=== PATIENT | female | born 1940 | race Caucasian/White ===

== ENCOUNTER 2018-01-07 14:30 | Emergency (ER) | payer MEDICARE ==
--- NOTE | 2018-01-07 15:30 | CT ---
CT BRAIN WITHOUT CONTRAST: Date: 01/07/18 HISTORY: Altered mental status. Fall. COMPARISON: CT from 2008. FINDINGS: No acute hemorrhage or infarct. No midline shift or mass effect. Moderate atrophy. Mild increase in b hadyee ganglia and cerebellar calcifications. Calvarium is intact. IMPRESSION: No acute intracranial abnormality. POS: [facility]IE
--- NOTE | 2018-01-07 15:40 | CT ---
NONCONTRAST CT CERVICAL SPINE: DATE: 01/07/18. HISTORY: Cervical spine injury. TECHNIQUE: Contiguous axial CT images are obtained through the cervical spine from the skull base to the level o f th eT3 vertebral body. Sagittal and coronal reformatted images are provided. FINDINGS: There is mild anterolisthesis of C2 on C3 and to a greater degree anterolisthesis at the C3-4 level. There are prominent facet hypertrophic changes seen at each of these levels. There are degenerative changes of the cervical spine and narrowing of the intervertebral disk spaces at the majority of the levels with degenerative changes greatest at the C4-5, C5-6, and C6-7 levels where there are promine nt end plate degenerative changes and severe loss of intervertebral disk height. Vacuum phenomenon i s seen at the C4-5 and C5-6 levels. There is mild right and moderate left-sided neural foraminal narrowing at C2-3 level and moderate to severe bilateral neural foraminal narrowing at C3-4 level, greater on the right, primarily related to facet hypertrophic changes as well as posterior osteophyte formation and anterolisthesis at these le vels. At the C4-5 level, there is severe bilateral neural foraminal narrowing due to posterior osteophyte f ormation and uncinate process hypertrophy. There is severe left-sided neural foraminal narrowing at C5-6 again related to the facet hypertrophic changes and posterior osteophyte formation. Severe bila teral neural foraminal narrowing is also seen at the C6-7 level related to bony encroachment. No fracture is seen. There is trace anterolisthesis of C7 on T1. There is mild height loss at the C 5 vertebral body probably due to the prominent degenerative changes at this level. The prevertebral soft tissues are within normal limits. There are mild prominent interstitial densities at each lung apex which may be related to mild chroni c lung changes. There is a hypodense nodule left lobe of the thyroid gland measuring approximately 8 mm. Vascular calcifications are seen in the carotid arteries and at the aortic arch. IMPRESSION: 1. Multilevel degenerative changes seen throughout the cervical spine. 2. Anterolisthesis of C2 on C3 and to a greater extent C3 on C4 related to prominent facet degenerat wallace changes. There is severe bilateral neural foraminal narrowing at the C3-4 level. 3. Hypodense nodule left lobe of the thyroid gland. Nonemergent thyroid ultrasound is recommended. POS: HERRERAH
[2018-01-07 16:03] LABS: Hemoglobin 14.7 g/dL (12.0-16.0); Mean Corpuscular HGB CONC 33.6 g/dL (32.0-36.0); Mean Corpuscular Hemoglobin 36.8 pg (27.0-31.0); Mean Platelet Volume 7.3 fL (7.4-10.4); Platelet Count 247 thou/uL (130-400); RBC Distribution Width 13.4 % (11.5-14.5); Red Blood Cell (RBC) Count 3.99 mill/uL (4.20-5.40); White Blood Cell (WBC) Count 6.7 thou/uL (4.8-10.8)
[2018-01-07] MEDS ORDERED: Multivitamins, Adult 10 ML, Thiamine HCl 100 MG, Folic Acid 1 MG in Dextrose 5 %-0.45 %... IV SCH (16:15)
[2018-01-07 16:19] LABS: ALT (SGPT) 30 U/L (8-55); AST (SGOT) 107 U/L (5-34); Albumin 3.9 g/dL (3.4-4.8); Alkaline Phosphatase 159 U/L (40-150); Anion Gap 21 mmol/L (10-20); BUN (Urea Nitrogen) 9 mg/dL (9.8-20.1); Bilirubin, Total 1.9 mg/dL (0.2-1.2); Calc. Creatinine Clearance 0 mL/min (70-130); Calcium 9.2 mg/dL (7.8-10.44); Carbon Dioxide 22 mmol/L (23-31); Chloride 100 mmol/L (98-107); Estimated GFR-MDRD 80; Globulin 3.5 g/dL (2.4-3.5); Glucose 78 mg/dL (83-110); Protein, Total 7.4 g/dL (6.0-8.3); Sodium 140 mmol/L (136-145)
[2018-01-07 16:20] LABS: Acetaminophen Less than 6.0 mcg/mL (10.0-30.0); Alcohol 258 mg/dL (Less than 10); CK (CPK) 63 U/L (29-168); Salicylate Less than 8.0 mg/dL (15.0-30.0)
[2018-01-07 16:22] LABS: MDiff Complete? YES; Macrocytosis SLIGHT = 6-15 cells (100X) (0-5/hpf); PLT Morphology Comment Appears Adequate; Potassium 2.8 mmol/L (3.5-5.1)
[2018-01-07] MEDS ORDERED: Potassium Chloride 20 MEQ TAB ONE ×2 (17:23→17:36)
[2018-01-07] MEDS ORDERED: Potassium Chloride 20 MEQ in Premix Bag 1 BAG IVPB SCH (18:00)
[2018-01-07] MEDS ORDERED: Magnesium Sulfate 2 GM in Sodium Chloride 0.9% 100 ML IVPB SCH (19:15)
== END 2018-01-07 22:09 | disposition home or self-care (01) ==
LOC: ERS 14:30
DX: F10.129 Alcohol abuse with intoxication, unspecified (principal); E87.6 Hypokalemia; Z87.891 Personal history of nicotine dependence
CPT/HCPCS: 36416; 70450; 72125; 80053; 80307; 82550; 83735; 85025; 93005; 96365; 96366; 96367; 96368; J3411; J3475; J3480; J7042; J7050

== ENCOUNTER 2018-02-24 13:29 | Inpatient (IN) | payer MEDICARE, OTHER ==
[2018-02-24 14:14] LABS: Hemoglobin 14.4 g/dL (12.0-16.0); Mean Corpuscular Hemoglobin 38.1 pg (27.0-31.0); Mean Platelet Volume 8.3 fL (7.4-10.4); Platelet Count 453 thou/uL (130-400); RBC Distribution Width 14.7 % (11.5-14.5); Red Blood Cell (RBC) Count 3.78 mill/uL (4.20-5.40); White Blood Cell (WBC) Count 22.1 thou/uL (4.8-10.8)
[2018-02-24 14:31] LABS: ALT (SGPT) 13 U/L (8-55); AST (SGOT) 75 U/L (5-34); Albumin 2.7 g/dL (3.4-4.8); Alkaline Phosphatase 165 U/L (40-150); Anion Gap 19 mmol/L (10-20); BUN (Urea Nitrogen) 7 mg/dL (9.8-20.1); Bilirubin, Total 7.7 mg/dL (0.2-1.2); Calc. Creatinine Clearance 0 mL/min (70-130); Calcium 7.8 mg/dL (7.8-10.44); Carbon Dioxide 26 mmol/L (23-31); Chloride 89 mmol/L (98-107); Estimated GFR-MDRD 80; Globulin 4.4 g/dL (2.4-3.5); Glucose 126 mg/dL (83-110); Protein, Total 7.1 g/dL (6.0-8.3); Sodium 132 mmol/L (136-145)
[2018-02-24 14:33] LABS: Anisocytosis SLIGHT = 6-15 cells (100X) (0-5/hpf); Band 7 % (5-11); Eosinophils 1 % (0-10); Lymphocytes 4 % (21-51); MDiff Complete? YES; Monocytes 4 % (0-10); Neutrophil 84 % (42-75); PLT Morphology Comment Appears Increased
--- NOTE | 2018-02-24 15:24 | RAD ---
RIGHT HIP 2 VIEWS: Date: 02/24/18 HISTORY: Pain. COMPARISON: None. FINDINGS: Mild to moderate degenerative change in the joint space. Contour of the femoral head is maintained. N o fracture. There is mild bone demineralization. IMPRESSION: No fracture. Mild degenerative change in the right hip joint space. POS: HERRERA
[2018-02-24] MEDS ORDERED: Potassium Chloride 20 MEQ TAB ONE (16:02)
[2018-02-24 16:10] LABS: Bilirubin Large (Negative); Blood, Urine Negative (Negative); Clarity CLOUDY (Clear); Glucose, Urine (Dipstick) Negative (Negative); Leukocyte Large (Negative); Nitrite Positive (Negative); Protein, Urine (Dipstick) 30 mg/dL (Neg-Trace); Specific Gravity, Urine 1.015 (1.002-1.036); Urobilinogen > or = 8.0 mg/dL (0.2-1.0)
[2018-02-24 16:12] LABS: Bacteria/HPF 4+ HPF (None Seen); Pathc Cast-AUWi Flag 0.87 (0-2.49); Squamous Epithelial None Seen HPF (0-3)
[2018-02-24 16:12] LABS: INR-International Normal Ratio 1.3; Prothrombin Time 16.1 SEC (12.0-14.7)
[2018-02-24 16:21] LABS: RBC/HPF None Seen HPF (0-3)
[2018-02-24] MEDS ORDERED: Sodium Chloride 0.9% 100 ML ONE (16:21)
[2018-02-24] MEDS ORDERED: cefTRIAXone\\ROCEPHIN 2 GM VIAL ONE (16:21)
--- NOTE | 2018-02-24 16:29 | RAD ---
ONE VIEW CHEST: 02/24/18 HISTORY: Weakness. COMPARISON: None. FINDINGS: Normal cardiac silhouette. Pulmonary vessels and hilum are normal. Parenchymal changes in both lung b ases. Small left sided effusion. Mild bone demineralization. No pneumothorax. IMPRESSION: Bibasilar parenchymal changes likely due to atelectasis. Aspiration/pneumonia cannot be excluded. Sma ll left sided effusion. POS: [facility]
[2018-02-24 18:26] LABS: Magnesium 1.5 mg/dL (1.6-2.6); Phosphorus 2.2 mg/dL (2.3-4.7)
[2018-02-24] MEDS: Multivitamins, Adult 10 ML, Thiamine HCl 100 MG, Folic Acid 1 MG in Dextrose 5 %-0.45 %... IV SCH ×2 (18:30→21:58)
[2018-02-24] MEDS: Potassium Chloride 40 MEQ in Sodium Chloride 0.9% 250 ML 250 ML IVPB SCH ×2 (18:30→21:59)
[2018-02-24 18:48] LABS: INR-International Normal Ratio 1.4; PTT 30.7 SEC (22.9-36.1); Prothrombin Time 17.5 SEC (12.0-14.7)
[2018-02-24 19:53] LABS: Lactic Acid 2.3 mmol/L (0.5-2.2)
[2018-02-24] MEDS ORDERED: Ondansetron ODT 4 MG TAB SL PRN (21:00)
[2018-02-24] MEDS ORDERED: Ondansetron HCl/PF 4 MG/2 ML Vial IVP PRN (21:00)
[2018-02-24] MEDS ORDERED: Sodium Chloride 0.9% 1,000 ML IV SCH (21:00)
[2018-02-24] MEDS ORDERED: Senokot 8.6 MG TAB PO PRN (21:49)
[2018-02-24] MEDS ORDERED: Calcium Carbonate 500 MG ChewTAB PO PRN (21:49)
[2018-02-24] MEDS ORDERED: Magnesium 2 GM/NS 0.9% 100 ML 2 GM in Premix Bag 1 BAG IVPB SCH (22:00)
--- NOTE | 2018-02-24 22:56 | HP ---
DATE OF ADMISSION: 02/24/2018 PRIMARY CARE PHYSICIAN: Sheyla guerrero. CHIEF COMPLAINT: Generalized weakness. HISTORY OF PRESENT ILLNESS: The patient is a 77-year-old female with chronic alcoholism and dementia who was brought in by her caregiver with generalized weakness and increasing confusion over the past week. Please note that there is no family or caregiver at the bedside at this time. Apparently, the caregiver was present in the emergency room. History was obtained from the ER record. Not much information is available from the patient. The patient was brought in from home by the patient's caregiver due to increasing confusion over the past week along with generalized fatigue and weakness. The patient has also lost appetite. There was some right hip pain as well. No fever or chills reported. The patient has a history of chronic alcoholism. It is unclear when her last drink was. In the emergency room, initial vital signs showed temperature 98, respiration 22 , pulse rate of 111 with a blood pressure of 114/69 with O2 saturation 95% on room air. The patient was found to have severe electrolyte abnormalities. She received vancomycin, ceftriaxone, banana bag, and potassium chloride in the emergency room. PAST MEDICAL HISTORY: 1. Chronic alcoholism. 2. Alzheimer's dementia. PAST SURGICAL HISTORY: Cannot be obtained from the patient due to current cognitive status. ALLERGIES: Cannot be obtained from the patient due to current cognitive status. CURRENT HOME MEDICATIONS: Cannot be obtained from the patient due to current cognitive status. FAMILY HISTORY: Cannot be obtained from the patient due to current cognitive status. SOCIAL HISTORY: Cannot be obtained from the patient due to current cognitive status. Per ER record, patient quit smoking 2 years ago. She drinks alcohol heavily on the daily basis. She lives alone at home and has a caregiver. FULL CODE. DPOA - brother in law Keron Schofield. REVIEW OF SYSTEMS: Cannot be obtained from the patient due to current cognitive status. CODE STATUS: She is FULL CODE. Durable power of personnel administrator is unclear at this time. PHYSICAL EXAMINATION: VITAL SIGNS: As discussed above. GENERAL: A 77-year-old female with altered mentation. Denies any new complaints. HEENT: Head atraumatic, normocephalic. Sclerae icteric. Dry mucous membrane, no oral lesion. NECK: Supple, no JVD, no neck stiffness. LUNGS: Showed bibasilar crackles with scattered rhonchi. No wheezing noted. HEART: S1, S2 present. Regular rate and rhythm, 2/6 systolic murmur over the mitral area. No heaves or pulsation. ABDOMEN: Soft, nondistended, bowel sounds present, no guarding, rigidity. EXTREMITIES: No edema or calf tenderness. Some right hip tenderness. PSYCHIATRIC: As discussed above. NEUROLOGIC: Detailed examination could not be done due to current cognitive status. The patient is spontaneously moving all 4 extremities. SKIN: Jaundiced, warm and dry. LYMPH NODES: No palpable lymph nodes in the neck. PERIPHERAL VASCULAR: Radial pulses palpable bilaterally. MUSCULOSKELETAL: As discussed above. LABORATORY AND X-RAY FINDINGS: WBC 22.1 with 84% neutrophils. MCV 112 with MCH 38.1, INR 1.4, PT 17.5, potassium 2.0 with sodium 132, phosphorus 2.2, magnesium 1.5, creatinine 0.7. Lactic acid was 4.5. Repeat lactic acid after IV hydration was 2.3, total bilirubin 7.7, albumin 2.7 with total protein of 7.1. Lipase of 143, direct bilirubin 5.0. Urinalysis showed greater than 50 wbc's with 4+ bacteria and hyaline cast. Chest x-ray by my review showed possible bilateral parenchymal changes consistent with aspiration pneumonia. Telemetry by my review showed sinus rhythm. IMPRESSION: 1. Generalized weakness, multifactorial. 2. Sepsis with acute organ dysfunction secondary to urinary tract infection and possible aspiration pneumonia. 3. Severe electrolyte abnormalities including hypokalemia, hyponatremia, hypophosphatemia and hypomagnesemia. 4. Lactic acidosis, probably secondary to sepsis/dehydration. 5. Abnormal liver function tests of unclear etiology, probably secondary to chronic alcoholism. The bilirubin was 1.9 two months ago. 6. Moderate protein calorie malnutrition. 7. Macrocytosis, probably secondary to chronic alcoholism, rule out folic acid and vitamin B12 deficiency. 8. Chronic alcoholism. 9. Elevated lipase, probably secondary to chronic alcohol use. PLAN: The patient will be monitored on the telemetry unit. Electrolytes will be replaced. We will consult Gastroenterology in a.m. Check ammonia, cortisol , folic acid, vitamin B12 in a.m. Repeat magnesium, phosphorus, and lipase in a.m. We will check TSH. IV fluid with potassium chloride. Antibiotics for UTI and possible aspiration pneumonia. We will repeat chest x-ray in a.m. Plan of care was discussed with the patient. We will discuss the plan of care with the family in a.m. Palliative care team will be consulted. KELSEY
[2018-02-24] MEDS: Lorazepam 1 MG TAB PO PRN (23:23)
[2018-02-24] MEDS: Piperacillin/Tazobactam 3.375 GM in Sodium Chloride 0.9% 100 ML IVPB SCH (23:30)
--- NOTE | 2018-02-24 23:52 | ULT ---
RENAL ULTRASOUND 02/24/18 COMPARISON: Hepatic ultrasound 02/24/18. HISTORY: Urinary tract infection. Evaluate for obstructive uropathy. TECHNIQUE: Multiplanar lyons scale and color doppler images were obtained in a renal ultrasound. FINDINGS: The kidneys are normal in echogenicity without hydronephrosis or calculi and each measure 9.8 cm in l ength. Limited visualization of the urinary bladder is unremarkable. IMPRESSION: Unremarkable renal ultrasound. POS: [facility]
--- NOTE | 2018-02-24 23:56 | ULT ---
RIGHT UPPER QUADRANT ABDOMINAL ULTRASOUND 02/24/18 COMPARISON: None. HISTORY: Increased LFTs. History of alcohol abuse. TECHNIQUE: Multiplanar lyons scale and color doppler images were obtained in a right upper quadrant hepatic ultra sound. Spectral analysis of the doppler waveforms were performed. FINDINGS: The liver demonstrates increased echogenicity without focal lesions or intrahepatic ductal dilatation . The gallbladder contains a small amount of nonshadowing sludge without gallbladder wall thickening or pericholecystic fluid. The common bile duct is normal measuring 4 mm. Normal directional flow is seen within the hepatic veins, splenic artery and vein, and portal vein. The spleen is normal in echogenicity and size measuring 8.3 cm in length. A small amount of ascites i s seen. The pancreas cannot be visualized. IMPRESSION: 1. Cirrhosis with normal directional flow within the hepatic vessels. 2. Gallbladder sludge. POS: [facility]
[2018-02-24] MEDS ORDERED: Potassium Phosphate 30 MMOL in Sodium Chloride 0.9% 500 ML IVPB SCH (23:59)
[2018-02-25 05:00] LABS: #Basophils 0.1 thou/uL (0.0-0.2); #Eosinphils 0.2 thou/uL (0.0-0.7); #Lymphocytes 3.3 thou/uL (1.20-3.40); #Monocytes 1.5 thou/uL (0.11-0.59); #Neutrophils 14.5 thou/uL (1.40-6.50); %Basophils 0.5 % (0.0-1.0); %Eosinophils 1.1 % (0.0-10.0); %Lymphocytes 16.9 % (21.0-51.0); %Monocytes 7.8 % (0.0-10.0); %Neutrophils 73.7 % (42.0-75.0); Hemoglobin 12.9 g/dL (12.0-16.0); Mean Corpuscular HGB CONC 33.5 g/dL (32.0-36.0); Mean Corpuscular Hemoglobin 38.2 pg (27.0-31.0); Mean Platelet Volume 8.2 fL (7.4-10.4); Platelet Count 355 thou/uL (130-400); RBC Distribution Width 14.6 % (11.5-14.5); Red Blood Cell (RBC) Count 3.38 mill/uL (4.20-5.40); White Blood Cell (WBC) Count 19.7 thou/uL (4.8-10.8)
[2018-02-25] MEDS: NS 0.9% w/ 40 MEQ KCL 1,000 ML IV SCH ×4 (05:06→21:56)
[2018-02-25] MEDS: Piperacillin/Tazobactam 3.375 GM in Sodium Chloride 0.9% 100 ML IVPB SCH ×3 (05:07→18:13)
[2018-02-25 05:11] LABS: Lactic Acid 3.1 mmol/L (0.5-2.2)
[2018-02-25 05:19] LABS: ALT (SGPT) 15 U/L (8-55); AST (SGOT) 73 U/L (5-34); Albumin 2.4 g/dL (3.4-4.8); Alkaline Phosphatase 140 U/L (40-150); Anion Gap 14 mmol/L (10-20); BUN (Urea Nitrogen) 5 mg/dL (9.8-20.1); Bilirubin, Direct 4.8 mg/dL (0.1-0.3); Bilirubin, Total 6.5 mg/dL (0.2-1.2); Calc. Creatinine Clearance 55 mL/min (70-130); Calcium 7.1 mg/dL (7.8-10.44); Carbon Dioxide 23 mmol/L (23-31); Chloride 100 mmol/L (98-107); Estimated GFR-MDRD Greater than 90; Glucose 98 mg/dL (83-110); Lipase 90 U/L (8-78); Magnesium 2.1 mg/dL (1.6-2.6); Phosphorus 2.7 mg/dL (2.3-4.7); Potassium 2.9 mmol/L (3.5-5.1); Sodium 134 mmol/L (136-145)
[2018-02-25 05:46] LABS: Vitamin B12 1530 pg/mL (211-911)
[2018-02-25] MEDS ORDERED: Potassium Chloride 10 MEQ in Premix Bag 1 BAG IVPB SCH (06:30)
[2018-02-25 07:53] LABS: Folate (Folic Acid) Greater than 76.00 ng/mL (7.0-31.4)
--- NOTE | 2018-02-25 08:02 | RAD ---
CHEST 1 VIEW: Date: 02/25/18 HISTORY: Weakness. Dyspnea. Follow-up. COMPARISON: 02/24/18. FINDINGS: Cardiac silhouette is magnified by projection. Pulmonary vasculature upper limits of normal. Mediasti num is midline with aortic calcification. Patchy bibasilar parenchymal opacity is unchanged. No evide nce of pneumothorax. Old right proximal humeral fracture. IMPRESSION: Slight increase in pulmonary vascular congestion. Otherwise stable radiographic appearance of the [address]. POS: [facility]
[2018-02-25] MEDS ORDERED: Prevnar 13-Val Conj/PF 0.5 ML SYRINGE IM ONE (09:00)
[2018-02-25] MEDS: Docusate 100 MG CAP PO SCH ×2 (11:35→19:42)
[2018-02-25] MEDS: Cyanocobalamin (Vitamin B-12) 1,000 MCG TAB PO SCH (11:35)
[2018-02-25] MEDS: Potassium Chloride 20 MEQ TAB PO SCH ×2 (11:35→12:26)
[2018-02-25] MEDS: K-Phos Neutral 250 MG TAB PO SCH ×3 (11:35→16:13)
[2018-02-25] MEDS: Famotidine 20 MG TAB PO SCH ×2 (11:35→19:42)
[2018-02-25] MEDS: Folic Acid 1 MG TAB PO SCH (11:36)
[2018-02-25] MEDS: Multivit, Therapeutic 1 TAB PO SCH (11:36)
--- NOTE | 2018-02-25 12:06 | PQF ---
HIREN CHAN MALIK MD [id number] [facility]-[id number] CLINICAL DOCUMENTATION IMPROVEMENT CLARIFICATION FORM: ICD-10 Updated PLEASE DO AN ADDENDUM TO THE PROGRESS NOTE WITH ANY DOCUMENTATION UPDATES OR ADDITIONS AND CARRY THROUGH TO DC SUMMARY. THANK YOU. DATE: 02-25-18 ATTN: DR. RUVALCABA Please exercise your independent, professional judgment in responding to the clarification form. Clinical indicators are provided on the bottom of this form for your review Please check appropriate box(s): [ ] Encephalopathy: Type: [ ] Acute [ ] Subacute [ ] Chronic Etiology: [ ] Metabolic [ ] Hepatic w/o Coma [ ] Septic [ ] Unspecified [ ] in the setting of underlying dementia [ ] Other (please specify) [ ] Transient Alteration of Awareness [ ] Other diagnosis [ ] Unable to determine In addition, please specify: Present on Admission (POA): [ ] Yes [ ] No [ ] Unable to determine For continuity of documentation, please document condition throughout progress notes and discharge summary. Thank You. CLINICAL INDICATORS - SIGNS / SYMPTOMS / LABS H&P: ALZHEIMER'S W/ DEMENTIA CHRONIC ALCOHOLISM CAREGIVER BROUGHT TO ED W/ INCREASING CONFUSION OVER THE PAST WEEK PMH CANNOT BE OBTAINED FROM PATIENT DUE TO CURRENT COGNITIVE STATUS RISK FACTORS H&P: SEPSIS W/ ACUTE ORGAN DYSFUNCTION D/T UTI AND POSSIBLE ASPIRATION PNA SEVERE HYPONATREMIA; HYPOPHOSPHATEMIA; HYPOMAGNESEMIA ABNORMAL LIVER FUNCTION TEST - PROBABLY D/T CHRONIC ALCOHOLISM TREATMENTS: ED: VANCOMYCIN 02-24 ; ROCEPHIN 02-24 MAR: ZOSYN 02-24 / 02-25 H&P: REPLACE ELECTROLYTES CHECK AMMONIA/CORTISOL/FOLIC ACID/VITAMIN B12/REPEAT MAGNESIUM/PHOSPHORUS/ LIPASE/TSH IV FLUIDS W/ POTASSIUM CHLORIDE REPEAT CXR THANK YOU, PATRICIA (This form is maintained as a part of the permanent medical record) 2014 [employer]. All Rights Reserved Patricia Dawkins RN, BS [email or web address]
[2018-02-25] MEDS ORDERED: Lorazepam 2 MG/ML VIAL SLOW IVP PRN (12:08)
[2018-02-25] MEDS ORDERED: Potassium Chloride 40 MEQ in Premix Bag 1 BAG IVPB SCH (12:15)
[2018-02-25] MEDS: Potassium Chloride 20 MEQ in Premix Bag 1 BAG IVPB SCH ×2 (13:54→16:40)
[2018-02-25] MEDS ORDERED: Vancomycin HCl 1 GM in Premix Bag 1 BAG IVPB SCH (17:00)
--- NOTE | 2018-02-25 20:57 | PDOC.EVN ---
Event Note - Event Note Event Note: ACP note: Case d/w DPOA Mr (brother in law) extensively. DNR confirmed. Palliative care team also present. Diagnosis - Gen weakness/deconditioning/chronic alcoholism with possible withdrawal. Time spent - 20 min.
--- NOTE | 2018-02-25 20:57 | PDOC.PN ---
- Subjective Encounter Start Date: 02/25/18 Encounter Start Time: 09:00 -: non-verbal Patient seen and examined for Gen weakness/Encephalopathy. More confused today. No overnight events - Objective Resuscitation Status: Resuscitation Status DNR:Do Not Resuscitate MAR Reviewed: Yes Vital Signs & Weight: Vital Signs (12 hours) Temp Pulse Pulse Resp BP BP Pulse Ox 02/25/18 19:55 97.6 F 75 14 125/68 100 02/25/18 16:37 98.0 F 76 16 134/65 94 L 02/25/18 13:16 136/63 02/25/18 12:50 98.2 F 75 14 136/63 96 02/25/18 09:17 92 145/55 H Weight Admit Weight 93 lb 8 oz Weight 101 lb Result Diagrams: 02/25/18 04:43 02/25/18 04:43 Additional Labs: Accuchecks 02/25/18 02/25/18 02/25/18 17:17 11:45 06:37 POC Glucose 98 91 106 02/25/18 01:35 POC Glucose 137 H Radiology Reviewed by me: Yes (CXR - ?infiltrate) EKG Reviewed by me: Yes (Tele SR) Phys Exam - Physical Examination Constitutional: NAD Respiratory: no wheezing, no rhonchi Scat bibasilar rales, Symmetrical Cardiovascular: RRR, no rub No heaves/pulsations Gastrointestinal: soft, non-tender, no distention, positive bowel sounds No guarding Musculoskeletal: no edema Neuro/Psych - Cannot assess due to current mentation Dx/Plan - Plan DVT proph w/SCDs IMPRESSION: 1. Generalized weakness / Toxic Metabolic Encephalopathy 2. Sepsis with acute organ dysfunction secondary to E coli urinary tract infection and possible aspiration pneumonia. 3. Severe electrolyte abnormalities including hypokalemia, hyponatremia, hypophosphatemia and hypomagnesemia. 4. Lactic acidosis, probably secondary to sepsis/dehydration. 5. Abnormal liver function tests of unclear etiology, probably secondary to chronic alcoholism. 6. Moderate protein calorie malnutrition. 7. Macrocytosis, probably secondary to chronic alcoholism, rule out folic acid and vitamin B12 deficiency. 8. Chronic alcoholism with ?Alcohol withdrawal 9. Elevated lipase, probably secondary to chronic alcohol use. PLAN: Cont ASE protocol with PRN Ativan NPO for now due to AMS Replace electrolytes AM labs Cont Zosyn DC Vancomycin Start Steroids - Discriminant function 32 Microbiology 02/24/18 16:08 Venous blood - Left Hand Blood Culture - Preliminary Specimen has been received and culture in progress. No Growth to date. 02/24/18 15:51 Venous blood - Right Arm Blood Culture - Preliminary Specimen has been received and culture in progress. No Growth to date. 02/24/18 15:51 Urine Straight Catheter Urine Culture - Preliminary Presumptive Escherichia coli Laboratory Tests 02/24/18 02/25/18 18:30 04:43 PT 17.5 H INR 1.4 Lactic Acid 3.1 H Review of Systems - Review of Systems Other: Cannot obtain due to current cognition. - Medications/Allergies Allergies/Adverse Reactions: Allergies Allergy/AdvReac Type Severity Reaction Status Date / Time No Known Allergies Allergy Unverified 01/07/18 16:01 Medications: Current Medications Calcium Carbonate (Tums) 1,000 mg PO Q4H PRN PRN Reason: Heartburn or Indigestion Cyanocobalamin (Vitamin B-12) 1,000 mcg PO DAILY [facility] Last Admin: 02/25/18 11:35 Dose: Not Given Docusate Sodium (Colace) 100 mg PO BID [facility] Last Admin: 02/25/18 19:42 Dose: Not Given Famotidine (Pepcid) 20 mg PO BID [facility] Last Admin: 02/25/18 19:42 Dose: Not Given Folic Acid (Folvite) 1 mg PO DAILY [facility] Last Admin: 02/25/18 11:36 Dose: Not Given Piperacillin Sod/Tazobactam (Sod 3.375 gm/ Sodium Chloride) 100 mls @ 200 mls/ hr IVPB Q6HR [facility] Last Admin: 02/25/18 18:13 Dose: 100 mls Potassium Chloride/Sodium Chloride (Ns 0.9% W/ 40 Meq Kcl) 1,000 mls @ 50 mls/ hr IV .Q20H [facility] Last Admin: 02/25/18 11:37 Dose: Not Given Lorazepam (Ativan) 1 mg PO Q4H PRN PRN Reason: ASE >=9 Last Admin: 02/24/18 23:23 Dose: 1 mg Lorazepam (Ativan) 1 mg SLOW IVP Q4H PRN PRN Reason: ASE >=9 Methylprednisolone Sodium Succinate (Solu-Medrol) 20 mg IVP Q12H [facility] Last Admin: 02/25/18 13:02 Dose: 20 mg Multivitamins (Theragran) 1 tab PO DAILY [facility] Last Admin: 02/25/18 11:36 Dose: Not Given Phosphorus (Kphos Neutral) 500 mg PO TID-WM [facility] Last Admin: 02/25/18 16:13 Dose: Not Given Senna (Senokot) 2 tab PO HSPRN PRN PRN Reason: Constipation Sodium Chloride (Flush - Normal Saline) 10 ml IVF Q12HR [facility] Last Admin: 02/25/18 19:43 Dose: 10 ml Sodium Chloride (Flush - Normal Saline) 10 ml IVF PRN PRN PRN Reason: Saline Flush Thiamine HCl (Thiamine) 100 mg PO DAILY [facility] Last Admin: 02/25/18 11:36 Dose: Not Given
[2018-02-26] MEDS: Piperacillin/Tazobactam 3.375 GM in Sodium Chloride 0.9% 100 ML IVPB SCH ×5 (00:59→23:11)
[2018-02-26 06:33] LABS: Lactic Acid 2.3 mmol/L (0.5-2.2)
[2018-02-26 06:37] LABS: ALT (SGPT) 21 U/L (8-55); AST (SGOT) 83 U/L (5-34); Albumin 2.4 g/dL (3.4-4.8); Alkaline Phosphatase 141 U/L (40-150); Anion Gap 15 mmol/L (10-20); BUN (Urea Nitrogen) 5 mg/dL (9.8-20.1); Bilirubin, Total 6.5 mg/dL (0.2-1.2); Calc. Creatinine Clearance 63 mL/min (70-130); Calcium 7.5 mg/dL (7.8-10.44); Carbon Dioxide 22 mmol/L (23-31); Chloride 110 mmol/L (98-107); Estimated GFR-MDRD Greater than 90; Globulin 3.7 g/dL (2.4-3.5); Glucose 110 mg/dL (83-110); Phosphorus 2.2 mg/dL (2.3-4.7); Potassium 3.8 mmol/L (3.5-5.1); Protein, Total 6.1 g/dL (6.0-8.3); Sodium 143 mmol/L (136-145)
[2018-02-26 06:42] LABS: Band 4 % (5-11); Hemoglobin 12.6 g/dL (12.0-16.0); Lymphocytes 11 % (21-51); MDiff Complete? YES; Mean Corpuscular HGB CONC 32.2 g/dL (32.0-36.0); Mean Corpuscular Hemoglobin 36.9 pg (27.0-31.0); Mean Platelet Volume 8.4 fL (7.4-10.4); Monocytes 3 % (0-10); Myelocyte 1 % (0-0); Neutrophil 81 % (42-75); PLT Morphology Comment Appears Increased; Platelet Count 436 thou/uL (130-400); RBC Distribution Width 14.9 % (11.5-14.5); Red Blood Cell (RBC) Count 3.43 mill/uL (4.20-5.40); White Blood Cell (WBC) Count 22.4 thou/uL (4.8-10.8)
[2018-02-26] MEDS: K-Phos Neutral 250 MG TAB PO SCH ×3 (07:17→16:32)
[2018-02-26] MEDS: Famotidine 20 MG TAB PO SCH ×2 (08:10→20:54)
[2018-02-26] MEDS: Multivit, Therapeutic 1 TAB PO SCH (08:10)
[2018-02-26] MEDS: Folic Acid 1 MG TAB PO SCH ×2 (08:10→20:54)
[2018-02-26] MEDS: Cyanocobalamin (Vitamin B-12) 1,000 MCG TAB PO SCH ×2 (08:10→20:53)
[2018-02-26] MEDS: Docusate 100 MG CAP PO SCH ×2 (08:10→20:53)
[2018-02-26] MEDS ORDERED: Potassium Phosphate 12 MMOL in Sodium Chloride 0.9% 100 ML IVPB SCH (11:00)
[2018-02-26] MEDS: prednisoLONE Sod Phosphate 10 MG ODT TAB PO SCH (16:39)
[2018-02-26] MEDS ORDERED: prednisoLONE Sod Phosphate 10 MG ODT TAB PO SCH (17:00)
--- NOTE | 2018-02-26 21:03 | PDOC.PN ---
- Subjective Encounter Start Date: 02/26/18 Encounter Start Time: 09:30 Patient seen and examined for Sepsis/Encephalopathy. Mentation somewhat better with intermittent confusion. No new complaints. No overnight events - Objective Resuscitation Status: Resuscitation Status DNR:Do Not Resuscitate MAR Reviewed: Yes Vital Signs & Weight: Vital Signs (12 hours) Temp Pulse Resp BP Pulse Ox 02/26/18 15:49 97.9 F 88 18 122/62 95 02/26/18 14:50 98.6 F 84 20 174/96 H 95 02/26/18 11:34 97.8 F 97 14 142/86 H 98 Weight Admit Weight 93 lb 8 oz Weight 108 lb I&O: 02/25/18 02/26/18 02/27/18 06:59 06:59 06:59 Intake Total 521 1376 Balance 521 1376 Result Diagrams: 02/26/18 05:30 02/26/18 05:30 Additional Labs: Accuchecks 02/26/18 02/26/18 02/26/18 18:01 11:51 05:50 POC Glucose 193 H 105 108 02/25/18 23:56 POC Glucose 106 EKG Reviewed by me: Yes (Tele SR) Phys Exam - Physical Examination Constitutional: NAD Respiratory: no wheezing, no rhonchi Cardiovascular: RRR, no rub Gastrointestinal: soft, non-tender, positive bowel sounds Musculoskeletal: no edema Neurological: moves all 4 limbs Dx/Plan - Plan DVT proph w/SCDs IMPRESSION: 1. Generalized weakness / Toxic Metabolic Encephalopathy 2. Sepsis with acute organ dysfunction secondary to E coli urinary tract infection and ?aspiration pneumonia. 3. Severe electrolyte abnormalities including hypokalemia, hyponatremia, hypophosphatemia and hypomagnesemia. 4. Lactic acidosis, probably secondary to sepsis/dehydration. 5. Abnormal liver function tests of unclear etiology, probably secondary to chronic alcoholism. 6. Moderate protein calorie malnutrition. 7. Macrocytosis, probably secondary to chronic alcoholism, rule out folic acid and vitamin B12 deficiency. 8. Chronic alcoholism with ?Alcohol withdrawal 9. Elevated lipase, probably secondary to chronic alcohol use. PLAN: Cont Zosyn Cont current IVF Cont ASE protocol with PRN Ativan PO diet started with aspiration precautions Replace Phosphorus AM labs including Lactic acid Change IV Steroids to Prednisolone - Discriminant function 32 Cont Thiamine/Folic acid CXR in AM Add Seroquel HS Microbiology 02/24/18 15:51 Urine Straight Catheter Urine Culture - Final Escherichia coli 02/24/18 16:08 Venous blood - Left Hand Blood Culture - Preliminary NO GROWTH AT 48 HOURS 02/24/18 15:51 Venous blood - Right Arm Blood Culture - Preliminary NO GROWTH AT 48 HOURS Laboratory Tests 02/26/18 02/26/18 05:30 05:30 Lactic Acid 2.3 H Total Bilirubin 6.5 H AST 83 H Review of Systems - Review of Systems Other: Cannot obtain due to current cognition - Medications/Allergies Allergies/Adverse Reactions: Allergies Allergy/AdvReac Type Severity Reaction Status Date / Time No Known Allergies Allergy Unverified 01/07/18 16:01 Medications: Current Medications Calcium Carbonate (Tums) 1,000 mg PO Q4H PRN PRN Reason: Heartburn or Indigestion Cyanocobalamin (Vitamin B-12) 1,000 mcg PO [facility] Last Admin: 02/26/18 20:53 Dose: Not Given Docusate Sodium (Colace) 100 mg PO BID [facility] Last Admin: 02/26/18 20:53 Dose: Not Given Famotidine (Pepcid) 20 mg PO BID [facility] Last Admin: 02/26/18 20:54 Dose: Not Given Folic Acid (Folvite) 1 mg PO QPM [facility] Last Admin: 02/26/18 20:54 Dose: Not Given Piperacillin Sod/Tazobactam (Sod 3.375 gm/ Sodium Chloride) 100 mls @ 200 mls/ hr IVPB Q6HR [facility] Last Admin: 02/26/18 17:33 Dose: 100 mls Potassium Chloride/Sodium Chloride (Ns 0.9% W/ 40 Meq Kcl) 1,000 mls @ 50 mls/ hr IV .Q20H [facility] Last Admin: 02/25/18 21:56 Dose: 1,000 mls Lorazepam (Ativan) 1 mg PO Q4H PRN PRN Reason: ASE >=9 Last Admin: 02/24/18 23:23 Dose: 1 mg Multivitamins (Theragran) 1 tab PO DAILY [facility] Last Admin: 02/26/18 08:10 Dose: Not Given Phosphorus (Kphos Neutral) 250 mg PO TID-[facility] Last Admin: 02/26/18 16:32 Dose: 250 mg Prednisolone Sodium Phosphate (Orapred Odt) 20 mg PO BID-[facility] Last Admin: 02/26/18 16:39 Dose: 20 mg Quetiapine Fumarate (Seroquel) 25 mg PO HS [facility] Last Admin: 02/26/18 20:54 Dose: Not Given Senna (Senokot) 2 tab PO HSPRN PRN PRN Reason: Constipation Sodium Chloride (Flush - Normal Saline) 10 ml IVF Q12HR [facility] Last Admin: 02/26/18 20:54 Dose: Not Given Sodium Chloride (Flush - Normal Saline) 10 ml IVF PRN PRN PRN Reason: Saline Flush Thiamine HCl (Thiamine) 100 mg PO DAILY [facility] Last Admin: 02/26/18 08:10 Dose: Not Given
[2018-02-27] MEDS: Piperacillin/Tazobactam 3.375 GM in Sodium Chloride 0.9% 100 ML IVPB SCH ×3 (05:24→18:23)
[2018-02-27] MEDS: NS 0.9% w/ 40 MEQ KCL 1,000 ML IV SCH ×2 (05:24→11:18)
[2018-02-27 05:35] LABS: #Eosinphils 0.2 thou/uL (0.0-0.7); #Monocytes 0.9 thou/uL (0.11-0.59); #Neutrophils 18.7 thou/uL (1.40-6.50); %Basophils 0.2 % (0.0-1.0); %Eosinophils 0.7 % (0.0-10.0); %Monocytes 4.3 % (0.0-10.0); %Neutrophils 85.8 % (42.0-75.0); Hemoglobin 12.1 g/dL (12.0-16.0); Mean Corpuscular Hemoglobin 37.9 pg (27.0-31.0); Mean Platelet Volume 8.8 fL (7.4-10.4); Platelet Count 397 thou/uL (130-400); RBC Distribution Width 15.3 % (11.5-14.5); Red Blood Cell (RBC) Count 3.19 mill/uL (4.20-5.40); White Blood Cell (WBC) Count 21.8 thou/uL (4.8-10.8)
[2018-02-27 05:48] LABS: Lactic Acid 3.1 mmol/L (0.5-2.2)
[2018-02-27 06:04] LABS: ALT (SGPT) 23 U/L (8-55); AST (SGOT) 81 U/L (5-34); Albumin 2.4 g/dL (3.4-4.8); Alkaline Phosphatase 147 U/L (40-150); Anion Gap 14 mmol/L (10-20); BUN (Urea Nitrogen) 8 mg/dL (9.8-20.1); Calc. Creatinine Clearance 58 mL/min (70-130); Calcium 7.7 mg/dL (7.8-10.44); Carbon Dioxide 21 mmol/L (23-31); Chloride 110 mmol/L (98-107); Estimated GFR-MDRD 90; Globulin 3.4 g/dL (2.4-3.5); Glucose 132 mg/dL (83-110); Magnesium 1.8 mg/dL (1.6-2.6); Potassium 3.5 mmol/L (3.5-5.1); Protein, Total 5.8 g/dL (6.0-8.3); Sodium 141 mmol/L (136-145)
[2018-02-27 06:06] LABS: Phosphorus 1.8 mg/dL (2.3-4.7)
[2018-02-27] MEDS ORDERED: Potassium Phosphate 21 MMOL in Sodium Chloride 0.9% 250 ML 250 ML IVPB SCH (06:30)
--- NOTE | 2018-02-27 09:07 | RAD ---
CHEST 1 VIEW: Date: 02/27/18 COMPARISON: 02/25/18. HISTORY: Aspiration pneumonia. FINDINGS: Worsening opacification of left lung base, obscuring the left hemidiaphragm and blunting of left cost ophrenic angle. The degree of opacification has slightly progressed. Stable aeration of the right dixie g. Stable cardiac silhouette. No pneumothorax. IMPRESSION: Worsening opacification left lung base. The possibility of aspiration should be considered. POS: [facility]
[2018-02-27] MEDS: K-Phos Neutral 250 MG TAB PO SCH ×3 (10:53→18:17)
[2018-02-27] MEDS: Docusate Sodium 100 MG/10 ML UDCUP PO SCH ×2 (10:54→21:43)
[2018-02-27] MEDS: Famotidine 20 MG TAB PO SCH ×2 (10:55→21:44)
[2018-02-27] MEDS: Multivit, Therapeutic 1 TAB PO SCH (10:55)
[2018-02-27] MEDS: Docusate 100 MG CAP PO SCH (11:17)
[2018-02-27] MEDS: prednisoLONE Sod Phosphate 10 MG ODT TAB PO SCH ×2 (11:47→18:11)
--- NOTE | 2018-02-27 17:08 | PDOC.PN ---
- Subjective Encounter Start Date: 02/27/18 Encounter Start Time: 09:30 Patient seen and examined for Sepsis. Mentation slowly improving. Appears comfortable. No overnight events - Objective Resuscitation Status: Resuscitation Status DNR:Do Not Resuscitate MAR Reviewed: Yes Vital Signs & Weight: Vital Signs (12 hours) Temp Pulse Resp BP BP Pulse Ox 02/27/18 16:00 98.4 F 71 18 132/62 95 02/27/18 12:00 125/62 02/27/18 11:20 98.5 F 99 20 125/62 93 L 02/27/18 08:05 134/62 02/27/18 07:50 98.2 F 78 18 134/62 93 L Weight Admit Weight 93 lb 8 oz Weight 108 lb 1.6 oz I&O: 02/26/18 02/27/18 02/28/18 06:59 06:59 06:59 Intake Total 521 2196 Output Total 3 Balance 521 2193 Result Diagrams: 02/27/18 04:50 02/27/18 04:49 Additional Labs: Accuchecks 02/27/18 02/27/18 02/27/18 13:50 06:02 00:06 POC Glucose 135 H 135 H 158 H 02/26/18 18:01 POC Glucose 193 H Radiology Reviewed by me: Yes (CXR - Left sided Aspiration Pneumonia) EKG Reviewed by me: Yes (Tele SR) Phys Exam - Physical Examination Constitutional: NAD Respiratory: no wheezing, no rhonchi Left basilar rales Cardiovascular: RRR, no rub Gastrointestinal: soft, non-tender, positive bowel sounds Musculoskeletal: no edema Neurological: moves all 4 limbs Dx/Plan - Plan DVT proph w/SCDs IMPRESSION: 1. Generalized weakness / Toxic Metabolic Encephalopathy - multifactorial 2. Sepsis with acute organ dysfunction secondary to E coli urinary tract infection and aspiration pneumonia. 3. Severe electrolyte abnormalities including hypokalemia, hyponatremia, hypophosphatemia and hypomagnesemia. 4. Lactic acidosis, probably secondary to sepsis/dehydration. 5. Acute Alcoholic hepatitis. 6. Moderate protein calorie malnutrition. 7. Macrocytosis 8. Chronic alcoholism with ?Alcohol withdrawal 9. Elevated lipase, probably secondary to chronic alcohol use. PLAN: Replace Phosphorus Cont Zosyn Cont IVF - increase rate to 70 ml/hr Cont ASE protocol with PRN Ativan/Seroquel HS Cont diet with aspiration precautions AM labs including Lactic acid Cont Prednisolone Cont Thiamine/Folic acid Add Nebs Microbiology 02/24/18 15:51 Urine Straight Catheter Urine Culture - Final Escherichia coli 02/24/18 16:08 Venous blood - Left Hand Blood Culture - Preliminary NO GROWTH AT 48 HOURS 02/24/18 15:51 Venous blood - Right Arm Blood Culture - Preliminary NO GROWTH AT 48 HOURS Laboratory Tests 02/27/18 02/27/18 04:49 04:49 Lactic Acid 3.1 H Phosphorus 1.8 L Total Bilirubin 5.0 H Review of Systems - Review of Systems Respiratory: Cough. negative: Dry, Shortness of Breath, Hemoptysis, SOB with Excertion, Pleuritic Pain, Sputum, Wheezing Cardiovascular: negative: chest pain, palpitations, orthopnea, paroxysmal nocturnal dyspnea, edema, light headedness, other - Medications/Allergies Allergies/Adverse Reactions: Allergies Allergy/AdvReac Type Severity Reaction Status Date / Time No Known Allergies Allergy Unverified 01/07/18 16:01 Medications: Current Medications Calcium Carbonate (Tums) 1,000 mg PO Q4H PRN PRN Reason: Heartburn or Indigestion Cyanocobalamin (Vitamin B-12) 1,000 mcg PO HS [facility] Last Admin: 02/26/18 20:53 Dose: Not Given Docusate Sodium (Colace Liquid) 100 mg PO BID [facility] Last Admin: 02/27/18 10:54 Dose: 100 mg Famotidine (Pepcid) 20 mg PO BID [facility] Last Admin: 02/27/18 10:55 Dose: 20 mg Folic Acid (Folvite) 1 mg PO QPM [facility] Last Admin: 02/26/18 20:54 Dose: Not Given Piperacillin Sod/Tazobactam (Sod 3.375 gm/ Sodium Chloride) 100 mls @ 200 mls/ hr IVPB Q6HR [facility] Last Admin: 02/27/18 13:38 Dose: 100 mls Potassium Chloride/Sodium Chloride (Ns 0.9% W/ 40 Meq Kcl) 1,000 mls @ 70 mls/ hr IV .[id number] [facility] Last Admin: 02/27/18 11:18 Dose: Not Given Lorazepam (Ativan) 1 mg PO Q4H PRN PRN Reason: ASE >=9 Last Admin: 02/24/18 23:23 Dose: 1 mg Multivitamins (Theragran) 1 tab PO DAILY [facility] Last Admin: 02/27/18 10:55 Dose: 1 tab Phosphorus (Kphos Neutral) 250 mg PO TID-[facility] Last Admin: 02/27/18 13:23 Dose: 250 mg Prednisolone Sodium Phosphate (Orapred Odt) 20 mg PO BID-[facility] Last Admin: 02/27/18 11:47 Dose: 20 mg Quetiapine Fumarate (Seroquel) 25 mg PO [facility] Last Admin: 02/26/18 20:54 Dose: Not Given Senna (Senokot) 2 tab PO HSPRN PRN PRN Reason: Constipation Sodium Chloride (Flush - Normal Saline) 10 ml IVF Q12HR [facility] Last Admin: 02/27/18 10:56 Dose: 10 ml Sodium Chloride (Flush - Normal Saline) 10 ml IVF PRN PRN PRN Reason: Saline Flush Thiamine HCl (Thiamine) 100 mg PO DAILY [facility] Last Admin: 02/27/18 10:55 Dose: 100 mg
[2018-02-27] MEDS: Cyanocobalamin (Vitamin B-12) 1,000 MCG TAB PO SCH (21:44)
[2018-02-27] MEDS: Folic Acid 1 MG TAB PO SCH (21:44)
[2018-02-28] MEDS: Piperacillin/Tazobactam 3.375 GM in Sodium Chloride 0.9% 100 ML IVPB SCH ×5 (00:22→23:41)
[2018-02-28] MEDS: NS 0.9% w/ 40 MEQ KCL 1,000 ML IV SCH ×2 (03:41→19:42)
[2018-02-28 06:39] LABS: #Eosinphils 0.1 thou/uL (0.0-0.7); #Lymphocytes 1.9 thou/uL (1.20-3.40); #Monocytes 0.8 thou/uL (0.11-0.59); %Basophils 0.2 % (0.0-1.0); %Eosinophils 0.5 % (0.0-10.0); %Monocytes 6.1 % (0.0-10.0); %Neutrophils 78.2 % (42.0-75.0); Hemoglobin 11.6 g/dL (12.0-16.0); Mean Corpuscular HGB CONC 32.3 g/dL (32.0-36.0); Mean Corpuscular Hemoglobin 37.4 pg (27.0-31.0); Mean Platelet Volume 9.1 fL (7.4-10.4); Platelet Count 334 thou/uL (130-400); RBC Distribution Width 15.2 % (11.5-14.5); Red Blood Cell (RBC) Count 3.11 mill/uL (4.20-5.40); White Blood Cell (WBC) Count 12.8 thou/uL (4.8-10.8)
[2018-02-28 06:59] LABS: Lactic Acid 1.6 mmol/L (0.5-2.2)
[2018-02-28 07:21] LABS: ALT (SGPT) 27 U/L (8-55); AST (SGOT) 81 U/L (5-34); Albumin 2.1 g/dL (3.4-4.8); Alkaline Phosphatase 132 U/L (40-150); Anion Gap 10 mmol/L (10-20); BUN (Urea Nitrogen) 9 mg/dL (9.8-20.1); Bilirubin, Total 3.7 mg/dL (0.2-1.2); Calc. Creatinine Clearance 53 mL/min (70-130); Calcium 7.6 mg/dL (7.8-10.44); Carbon Dioxide 19 mmol/L (23-31); Chloride 114 mmol/L (98-107); Estimated GFR-MDRD 81; Globulin 3.3 g/dL (2.4-3.5); Glucose 101 mg/dL (83-110); Magnesium 1.5 mg/dL (1.6-2.6); Phosphorus 2.8 mg/dL (2.3-4.7); Potassium 4.4 mmol/L (3.5-5.1); Protein, Total 5.4 g/dL (6.0-8.3); Sodium 139 mmol/L (136-145)
[2018-02-28] MEDS ORDERED: Magnesium 2 GM/NS 0.9% 100 ML 2 GM in Premix Bag 1 BAG IVPB SCH (07:45)
[2018-02-28] MEDS ORDERED: Magnesium Sulfate 2 GM, Admixture Fee 1 EACH in Sodium Chloride 0.9% 100 ML IVPB SCH (08:00)
[2018-02-28] MEDS: Famotidine 20 MG TAB PO SCH ×2 (10:34→20:25)
[2018-02-28] MEDS: K-Phos Neutral 250 MG TAB PO SCH ×2 (10:34→12:53)
[2018-02-28] MEDS: Multivit, Therapeutic 1 TAB PO SCH (10:34)
[2018-02-28] MEDS: prednisoLONE Sod Phosphate 10 MG ODT TAB PO SCH ×2 (10:37→18:42)
[2018-02-28] MEDS: Docusate Sodium 100 MG/10 ML UDCUP PO SCH (10:37)
[2018-02-28] MEDS: Loperamide HCl 2 MG CAP PO PRN (18:42)
[2018-02-28] MEDS: Saccharomyces boulardii 250 MG CAP PO SCH (20:25)
[2018-02-28] MEDS: Folic Acid 1 MG TAB PO SCH (20:25)
[2018-02-28] MEDS: Cyanocobalamin (Vitamin B-12) 1,000 MCG TAB PO SCH (20:26)
--- NOTE | 2018-02-28 21:58 | PDOC.PN ---
- Subjective Encounter Start Date: 02/28/18 Encounter Start Time: 10:30 Patient seen and examined for Sepsis. No new complaints. Intermittent confusion. No overnight events - Objective Resuscitation Status: Resuscitation Status DNR:Do Not Resuscitate MAR Reviewed: Yes Vital Signs & Weight: Vital Signs (12 hours) Temp Pulse Resp BP BP Pulse Ox 02/28/18 16:00 137/76 02/28/18 15:22 98.4 F 74 18 137/76 96 02/28/18 12:00 98.6 F 97 20 101/69 101/69 97 02/28/18 11:17 110 H 20 94 L Weight Admit Weight 93 lb 8 oz Weight 109 lb 1.6 oz I&O: 02/27/18 02/28/18 03/01/18 06:59 06:59 06:59 Intake Total 2196 2427 1294 Output Total 3 Balance 2193 2427 1294 Result Diagrams: 02/28/18 05:50 02/28/18 05:50 Additional Labs: Accuchecks 02/28/18 02/28/18 02/28/18 12:26 05:38 00:02 POC Glucose 156 H 109 143 H EKG Reviewed by me: Yes (Tele SR) Phys Exam - Physical Examination Constitutional: NAD Respiratory: no wheezing, no rhonchi Bibasilar rales Cardiovascular: RRR, no rub Gastrointestinal: soft, non-tender, positive bowel sounds Musculoskeletal: no edema Neurological: moves all 4 limbs Dx/Plan - Plan plan discussed w/ family, continue antibiotics, PT/OT, DVT proph w/SCDs IMPRESSION: 1. Generalized weakness / Toxic Metabolic Encephalopathy - multifactorial 2. Sepsis with acute organ dysfunction secondary to E coli urinary tract infection and aspiration pneumonia. 3. Severe electrolyte abnormalities including hypokalemia, hyponatremia, hypophosphatemia and hypomagnesemia. 4. Lactic acidosis, probably secondary to sepsis/dehydration. 5. Acute Alcoholic hepatitis. 6. Moderate protein calorie malnutrition. 7. Macrocytosis 8. Chronic alcoholism with ?Alcohol withdrawal 9. Elevated lipase, probably secondary to chronic alcohol use. PLAN: Replace Magnessium Cont Zosyn Cont IVF Cont ASE protocol DC Seroquel due to increased somnolence AM labs including Lactic acid Cont Prednisolone/Thiamine/Folic acid Cont current meds as below No Heparin due to Coagulopathy Laboratory Tests 02/28/18 05:50 Magnesium 1.5 L Total Bilirubin 3.7 H Laboratory Tests 02/28/18 05:50 Lactic Acid 1.6 Review of Systems - Review of Systems Respiratory: negative: Cough, Dry, Shortness of Breath, Hemoptysis, SOB with Excertion, Pleuritic Pain, Sputum, Wheezing Cardiovascular: negative: chest pain, palpitations, orthopnea, paroxysmal nocturnal dyspnea, edema, light headedness, other - Medications/Allergies Allergies/Adverse Reactions: Allergies Allergy/AdvReac Type Severity Reaction Status Date / Time No Known Allergies Allergy Unverified 01/07/18 16:01 Medications: Current Medications Albuterol/Ipratropium (Duoneb) 3 ml NEB [id number] [facility] Last Admin: 02/28/18 19:42 Dose: Not Given Albuterol/Ipratropium (Duoneb) 3 ml NEB Q3CO-TE PRN PRN Reason: SOB &/or Wheezing Calcium Carbonate (Tums) 1,000 mg PO Q4H PRN PRN Reason: Heartburn or Indigestion Cyanocobalamin (Vitamin B-12) 1,000 mcg PO HS [facility] Last Admin: 02/28/18 20:26 Dose: 1,000 mcg Famotidine (Pepcid) 20 mg PO BID [facility] Last Admin: 02/28/18 20:25 Dose: 20 mg Folic Acid (Folvite) 1 mg PO QPM [facility] Last Admin: 02/28/18 20:25 Dose: 1 mg Piperacillin Sod/Tazobactam (Sod 3.375 gm/ Sodium Chloride) 100 mls @ 200 mls/ hr IVPB Q6HR [facility] Last Admin: 02/28/18 19:41 Dose: 100 mls Potassium Chloride/Sodium Chloride (Ns 0.9% W/ 40 Meq Kcl) 1,000 mls @ 70 mls/ hr IV .[id number] [facility] Last Admin: 02/28/18 19:42 Dose: 1,000 mls Loperamide HCl (Imodium) 2 mg PO PRN PRN PRN Reason: Diarrhea/Loose Stools Last Admin: 02/28/18 18:42 Dose: 2 mg Lorazepam (Ativan) 1 mg PO Q4H PRN PRN Reason: ASE >=9 Last Admin: 02/24/18 23:23 Dose: 1 mg Multivitamins (Theragran) 1 tab PO DAILY [facility] Last Admin: 02/28/18 10:34 Dose: 1 tab Prednisolone Sodium Phosphate (Orapred Odt) 20 mg PO BID-[facility] Last Admin: 02/28/18 18:42 Dose: 20 mg Saccharomyces Boulardii (Florastor) 250 mg PO QPM [facility] Last Admin: 02/28/18 20:25 Dose: 250 mg Senna (Senokot) 2 tab PO HSPRN PRN PRN Reason: Constipation Sodium Chloride (Flush - Normal Saline) 10 ml IVF Q12HR [facility] Last Admin: 02/28/18 10:44 Dose: Not Given Sodium Chloride (Flush - Normal Saline) 10 ml IVF PRN PRN PRN Reason: Saline Flush Thiamine HCl (Thiamine) 100 mg PO DAILY [facility] Last Admin: 02/28/18 10:34 Dose: 100 mg
[2018-03-01] MEDS: Piperacillin/Tazobactam 3.375 GM in Sodium Chloride 0.9% 100 ML IVPB SCH ×3 (05:44→18:17)
[2018-03-01 06:44] LABS: #Eosinphils 0.1 thou/uL (0.0-0.7); #Lymphocytes 1.2 thou/uL (1.20-3.40); #Monocytes 0.8 thou/uL (0.11-0.59); #Neutrophils 12.1 thou/uL (1.40-6.50); %Basophils 0.2 % (0.0-1.0); %Eosinophils 0.6 % (0.0-10.0); %Lymphocytes 8.2 % (21.0-51.0); %Monocytes 5.8 % (0.0-10.0); %Neutrophils 85.3 % (42.0-75.0); Hemoglobin 11.3 g/dL (12.0-16.0); Mean Corpuscular HGB CONC 31.7 g/dL (32.0-36.0); Mean Corpuscular Hemoglobin 36.4 pg (27.0-31.0); Mean Platelet Volume 8.8 fL (7.4-10.4); Platelet Count 330 thou/uL (130-400); RBC Distribution Width 14.9 % (11.5-14.5); Red Blood Cell (RBC) Count 3.11 mill/uL (4.20-5.40); White Blood Cell (WBC) Count 14.2 thou/uL (4.8-10.8)
[2018-03-01 06:52] LABS: ALT (SGPT) 30 U/L (8-55); AST (SGOT) 77 U/L (5-34); Albumin 2.3 g/dL (3.4-4.8); Alkaline Phosphatase 133 U/L (40-150); Anion Gap 11 mmol/L (10-20); BUN (Urea Nitrogen) 6 mg/dL (9.8-20.1); Bilirubin, Total 3.5 mg/dL (0.2-1.2); Calc. Creatinine Clearance 62 mL/min (70-130); Calcium 7.8 mg/dL (7.8-10.44); Carbon Dioxide 19 mmol/L (23-31); Chloride 112 mmol/L (98-107); Estimated GFR-MDRD Greater than 90; Globulin 3.2 g/dL (2.4-3.5); Glucose 108 mg/dL (83-110); Magnesium 1.6 mg/dL (1.6-2.6); Phosphorus 2.4 mg/dL (2.3-4.7); Potassium 4.6 mmol/L (3.5-5.1); Protein, Total 5.5 g/dL (6.0-8.3); Sodium 137 mmol/L (136-145)
[2018-03-01] MEDS: prednisoLONE Sod Phosphate 10 MG ODT TAB PO SCH ×2 (08:39→18:17)
[2018-03-01] MEDS: Multivit, Therapeutic 1 TAB PO SCH (08:40)
[2018-03-01] MEDS: Famotidine 20 MG TAB PO SCH ×2 (08:40→19:42)
[2018-03-01] MEDS: Lorazepam 1 MG TAB PO PRN (08:40)
[2018-03-01] MEDS: Loperamide HCl 2 MG CAP PO PRN (08:40)
[2018-03-01] MEDS: NS 0.9% w/ 40 MEQ KCL 1,000 ML IV SCH (11:17)
[2018-03-01] MEDS: Saccharomyces boulardii 250 MG CAP PO SCH (19:42)
[2018-03-01] MEDS: Cyanocobalamin (Vitamin B-12) 1,000 MCG TAB PO SCH (19:42)
[2018-03-01] MEDS: Folic Acid 1 MG TAB PO SCH (19:42)
--- NOTE | 2018-03-01 23:13 | PDOC.PN ---
- Subjective Encounter Start Date: 03/01/18 Encounter Start Time: 09:00 Patient seen and examined for Sepsis. No new complaints. No overnight events. Mentation improving. - Objective Resuscitation Status: Resuscitation Status DNR:Do Not Resuscitate MAR Reviewed: Yes Vital Signs & Weight: Vital Signs (12 hours) Temp Pulse Resp BP Pulse Ox 03/01/18 19:45 97.4 F L 102 H 20 122/58 L 92 L 03/01/18 15:53 97.8 F 78 16 121/72 94 L 03/01/18 11:22 98.4 F 88 20 95 Weight Admit Weight 93 lb 8 oz Weight 112 lb 1.6 oz I&O: 02/28/18 03/01/18 03/02/18 06:59 06:59 06:59 Intake Total 2426 9835 1698 Balance 2429 1834 1696 Result Diagrams: 03/01/18 05:25 03/01/18 05:25 Additional Labs: Accuchecks 03/01/18 03/01/18 03/01/18 18:18 12:17 05:48 POC Glucose 140 H 118 H 114 H 03/01/18 02:10 POC Glucose 119 H EKG Reviewed by me: Yes (Tele SR) Phys Exam - Physical Examination Constitutional: NAD Respiratory: no wheezing, no rhonchi Cardiovascular: RRR, no rub Gastrointestinal: soft, non-tender, positive bowel sounds Musculoskeletal: no edema Neurological: moves all 4 limbs Dx/Plan - Plan DVT proph w/SCDs IMPRESSION: 1. Generalized weakness / Toxic Metabolic Encephalopathy - multifactorial 2. Sepsis with acute organ dysfunction secondary to E coli urinary tract infection and aspiration pneumonia - on Zosyn 3. Severe electrolyte abnormalities including hypokalemia, hyponatremia, hypophosphatemia and hypomagnesemia. 4. Lactic acidosis, probably secondary to sepsis/dehydration. 5. Acute Alcoholic hepatitis. improving 6. Moderate protein calorie malnutrition. 7. Macrocytosis 8. Chronic alcoholism with ?Alcohol withdrawal 9. Elevated lipase, probably secondary to chronic alcohol use. PLAN: Replace Magnessium Cont Zosyn Cont IVF - reduce rate to 50 ml/hr Cont ASE protocol Cont Prednisolone/Thiamine/Folic acid Cont current meds as below No Heparin due to Coagulopathy Transfer to medical Review of Systems - Review of Systems Respiratory: negative: Cough, Dry, Shortness of Breath, Hemoptysis, SOB with Excertion, Pleuritic Pain, Sputum, Wheezing Cardiovascular: negative: chest pain, palpitations, orthopnea, paroxysmal nocturnal dyspnea, edema, light headedness, other - Medications/Allergies Allergies/Adverse Reactions: Allergies Allergy/AdvReac Type Severity Reaction Status Date / Time No Known Allergies Allergy Unverified 01/07/18 16:01 Medications: Current Medications Albuterol/Ipratropium (Duoneb) 3 ml NEB [id number] [facility] Last Admin: 03/01/18 18:16 Dose: Not Given Albuterol/Ipratropium (Duoneb) 3 ml NEB Q4H PRN PRN Reason: SOB &/or Wheezing Calcium Carbonate (Tums) 1,000 mg PO Q4H PRN PRN Reason: Heartburn or Indigestion Cyanocobalamin (Vitamin B-12) 1,000 mcg PO [facility] Last Admin: 03/01/18 19:42 Dose: 1,000 mcg Famotidine (Pepcid) 20 mg PO BID [facility] Last Admin: 03/01/18 19:42 Dose: 20 mg Folic Acid (Folvite) 1 mg PO QPM [facility] Last Admin: 03/01/18 19:42 Dose: 1 mg Piperacillin Sod/Tazobactam (Sod 3.375 gm/ Sodium Chloride) 100 mls @ 200 mls/ hr IVPB Q6HR [facility] Last Admin: 03/01/18 18:17 Dose: 100 mls Potassium Chloride/Sodium Chloride (Ns 0.9% W/ 40 Meq Kcl) 1,000 mls @ 70 mls/ hr IV .[id number] [facility] Last Admin: 03/01/18 11:17 Dose: 1,000 mls Loperamide HCl (Imodium) 2 mg PO PRN PRN PRN Reason: Diarrhea/Loose Stools Last Admin: 03/01/18 08:40 Dose: 2 mg Lorazepam (Ativan) 1 mg PO Q4H PRN PRN Reason: ASE >=9 Last Admin: 03/01/18 08:40 Dose: 1 mg Multivitamins (Theragran) 1 tab PO DAILY [facility] Last Admin: 03/01/18 08:40 Dose: 1 tab Prednisolone Sodium Phosphate (Orapred Odt) 20 mg PO BID[facility] Last Admin: 03/01/18 18:17 Dose: 20 mg Saccharomyces Boulardii (Florastor) 250 mg PO QPM [facility] Last Admin: 03/01/18 19:42 Dose: 250 mg Senna (Senokot) 2 tab PO HSPRN PRN PRN Reason: Constipation Sodium Chloride (Flush - Normal Saline) 10 ml IVF Q12HR [facility] Last Admin: 03/01/18 08:41 Dose: Not Given Sodium Chloride (Flush - Normal Saline) 10 ml IVF PRN PRN PRN Reason: Saline Flush Thiamine HCl (Thiamine) 100 mg PO DAILY [facility] Last Admin: 03/01/18 08:40 Dose: 100 mg
[2018-03-01] MEDS ORDERED: Temazepam 15 MG CAP PO SCH (23:45)
[2018-03-02] MEDS: NS 0.9% w/ 40 MEQ KCL 1,000 ML IV SCH ×3 (02:49→10:46)
[2018-03-02] MEDS: Piperacillin/Tazobactam 3.375 GM in Sodium Chloride 0.9% 100 ML IVPB SCH ×5 (05:13→23:10)
[2018-03-02] MEDS: Lorazepam 1 MG TAB PO PRN (05:19)
[2018-03-02] MEDS: Multivit, Therapeutic 1 TAB PO SCH (09:22)
[2018-03-02] MEDS: prednisoLONE Sod Phosphate 10 MG ODT TAB PO SCH ×2 (09:23→17:41)
[2018-03-02] MEDS: Famotidine 20 MG TAB PO SCH ×3 (09:23→22:40)
[2018-03-02] MEDS ORDERED: cloNIDine 0.1 MG TAB PO PRN (18:04)
[2018-03-02] MEDS ORDERED: Labetalol HCl 100 MG/20 ML VIAL SLOW IVP PRN (18:04)
[2018-03-02] MEDS ORDERED: Temazepam 15 MG CAP PO PRN (18:05)
--- NOTE | 2018-03-02 19:47 | PDOC.PN ---
- Subjective Encounter Start Date: 03/02/18 Encounter Start Time: 10:45 Patient seen and examined for Encephalopathy. No new acute issues. No overnight events - Objective Resuscitation Status: Resuscitation Status DNR:Do Not Resuscitate MAR Reviewed: Yes Vital Signs & Weight: Vital Signs (12 hours) Temp Pulse Resp BP BP BP Pulse Ox 03/02/18 16:56 98.3 F 85 14 196/83 H 99 03/02/18 12:00 98.1 F 118 H 20 168/94 H 168/94 H 03/02/18 08:00 97.7 F 62 16 128/78 149/67 H 93 L Weight Admit Weight 93 lb 8 oz Weight 114 lb 11.2 oz I&O: 03/01/18 03/02/18 03/03/18 06:59 06:59 06:59 Intake Total 2464 2846 754 Balance 2464 2846 754 Result Diagrams: 03/01/18 05:25 03/01/18 05:25 Additional Labs: Accuchecks 03/02/18 03/02/18 03/02/18 17:15 12:25 06:14 POC Glucose 111 H 97 113 H 03/01/18 23:51 POC Glucose 153 H EKG Reviewed by me: Yes (Tele SR) Phys Exam - Physical Examination Constitutional: NAD Respiratory: no wheezing, no rhonchi Cardiovascular: RRR, no rub Gastrointestinal: soft, non-tender, positive bowel sounds Musculoskeletal: no edema Neurological: moves all 4 limbs Dx/Plan - Plan DVT proph w/SCDs IMPRESSION: 1. Generalized weakness / Toxic Metabolic Encephalopathy - multifactorial 2. Sepsis with acute organ dysfunction secondary to E coli urinary tract infection and aspiration pneumonia - on Zosyn 3. Severe electrolyte abnormalities including hypokalemia, hyponatremia, hypophosphatemia and hypomagnesemia. 4. Lactic acidosis, probably secondary to sepsis/dehydration. 5. Acute Alcoholic hepatitis. improving 6. Moderate protein calorie malnutrition. 7. HTN - uncontrolled. 8. Chronic alcoholism with ?Alcohol withdrawal 9. Elevated lipase, probably secondary to chronic alcohol use/Macrocytosis PLAN: Cont Prednisolone/Thiamine/Folic acid Cont Zosyn Cont IVF at 50 ml/hr Cont ASE protocol Cont current meds as below No Heparin due to Coagulopathy Add Clonidine AM labs Review of Systems - Review of Systems Respiratory: negative: Cough, Dry, Shortness of Breath, Hemoptysis, SOB with Excertion, Pleuritic Pain, Sputum, Wheezing Cardiovascular: negative: chest pain, palpitations, orthopnea, paroxysmal nocturnal dyspnea, edema, light headedness, other - Medications/Allergies Allergies/Adverse Reactions: Allergies Allergy/AdvReac Type Severity Reaction Status Date / Time No Known Allergies Allergy Unverified 01/07/18 16:01 Medications: Current Medications Albuterol/Ipratropium (Duoneb) 3 ml NEB Q4H PRN PRN Reason: SOB &/or Wheezing Calcium Carbonate (Tums) 1,000 mg PO Q4H PRN PRN Reason: Heartburn or Indigestion Clonidine (Catapres) 0.1 mg PO Q4H PRN PRN Reason: Systolic BP > 180 Last Admin: 03/02/18 18:27 Dose: 0.1 mg Cyanocobalamin (Vitamin B-12) 1,000 mcg PO HS [facility] Last Admin: 03/01/18 19:42 Dose: 1,000 mcg Famotidine (Pepcid) 20 mg PO BID [facility] Last Admin: 03/02/18 09:23 Dose: 20 mg Folic Acid (Folvite) 1 mg PO QPM [facility] Last Admin: 03/01/18 19:42 Dose: 1 mg Piperacillin Sod/Tazobactam (Sod 3.375 gm/ Sodium Chloride) 100 mls @ 200 mls/ hr IVPB Q6HR [facility] Last Admin: 03/02/18 17:44 Dose: 100 mls Potassium Chloride/Sodium Chloride (Ns 0.9% W/ 40 Meq Kcl) 1,000 mls @ 50 mls/ hr IV .Q20H [facility] Last Admin: 03/02/18 10:46 Dose: 1,000 mls Labetalol HCl (Normodyne) 10 mg SLOW IVP Q4H PRN PRN Reason: Systolic BP > 180 Loperamide HCl (Imodium) 2 mg PO PRN PRN PRN Reason: Diarrhea/Loose Stools Last Admin: 03/01/18 08:40 Dose: 2 mg Lorazepam (Ativan) 1 mg PO Q4H PRN PRN Reason: ASE >=9 Last Admin: 03/02/18 05:19 Dose: 1 mg Multivitamins (Theragran) 1 tab PO DAILY [facility] Last Admin: 09/19/18 09:22 Dose: 1 tab Prednisolone Sodium Phosphate (Orapred Odt) 20 mg PO BID-[facility] Last Admin: 03/02/18 17:41 Dose: 20 mg Saccharomyces Boulardii (Florastor) 250 mg PO QPM [facility] Last Admin: 03/01/18 19:42 Dose: 250 mg Senna (Senokot) 2 tab PO HSPRN PRN PRN Reason: Constipation Sodium Chloride (Flush - Normal Saline) 10 ml IVF Q12HR [facility] Last Admin: 03/02/18 09:24 Dose: Not Given Sodium Chloride (Flush - Normal Saline) 10 ml IVF PRN PRN PRN Reason: Saline Flush Temazepam (Restoril) 15 mg PO HS PRN PRN Reason: Insomnia Thiamine HCl (Thiamine) 100 mg PO DAILY [facility] Last Admin: 03/02/18 09:22 Dose: 100 mg
[2018-03-02] MEDS: Saccharomyces boulardii 250 MG CAP PO SCH ×2 (20:40→22:41)
[2018-03-02] MEDS: Cyanocobalamin (Vitamin B-12) 1,000 MCG TAB PO SCH ×2 (20:41→22:41)
[2018-03-02] MEDS: Folic Acid 1 MG TAB PO SCH ×2 (20:41→22:41)
[2018-03-03 04:40] LABS: #Eosinphils 0.2 thou/uL (0.0-0.7); #Lymphocytes 1.3 thou/uL (1.20-3.40); #Neutrophils 13.9 thou/uL (1.40-6.50); %Eosinophils 1.2 % (0.0-10.0); %Monocytes 6.2 % (0.0-10.0); %Neutrophils 84.7 % (42.0-75.0); Hemoglobin 12.6 g/dL (12.0-16.0); Mean Corpuscular HGB CONC 30.9 g/dL (32.0-36.0); Mean Corpuscular Hemoglobin 36.1 pg (27.0-31.0); Mean Platelet Volume 8.7 fL (7.4-10.4); Platelet Count 292 thou/uL (130-400); RBC Distribution Width 14.9 % (11.5-14.5); Red Blood Cell (RBC) Count 3.49 mill/uL (4.20-5.40); White Blood Cell (WBC) Count 16.4 thou/uL (4.8-10.8)
[2018-03-03 04:59] LABS: ALT (SGPT) 34 U/L (8-55); AST (SGOT) 65 U/L (5-34); Albumin 2.2 g/dL (3.4-4.8); Alkaline Phosphatase 132 U/L (40-150); Anion Gap 12 mmol/L (10-20); BUN (Urea Nitrogen) 6 mg/dL (9.8-20.1); Bilirubin, Total 3.1 mg/dL (0.2-1.2); Calc. Creatinine Clearance 58 mL/min (70-130); Calcium 8.2 mg/dL (7.8-10.44); Carbon Dioxide 17 mmol/L (23-31); Chloride 112 mmol/L (98-107); Estimated GFR-MDRD 84; Globulin 3.4 g/dL (2.4-3.5); Glucose 118 mg/dL (83-110); Magnesium 1.7 mg/dL (1.6-2.6); Phosphorus 3.4 mg/dL (2.3-4.7); Protein, Total 5.6 g/dL (6.0-8.3); Sodium 136 mmol/L (136-145)
[2018-03-03] MEDS: Piperacillin/Tazobactam 3.375 GM in Sodium Chloride 0.9% 100 ML IVPB SCH ×2 (05:30→12:57)
[2018-03-03 07:29] VITALS: TEMP 97.5
[2018-03-03] MEDS ORDERED: cloNIDine 0.1 MG TAB PO SCH (09:00)
[2018-03-03] MEDS: Famotidine 20 MG TAB PO SCH (09:52)
[2018-03-03] MEDS: Multivit, Therapeutic 1 TAB PO SCH (09:52)
[2018-03-03] MEDS: prednisoLONE Sod Phosphate 10 MG ODT TAB PO SCH (09:54)
[2018-03-03 10:06] VITALS: BP 149/75
[2018-03-03 14:19] VITALS: BMI 20.2
--- NOTE | 2018-03-03 18:23 | DIS ---
DATE OF ADMISSION: 02/24/2018 DATE OF DISCHARGE: 03/03/2018 DISCHARGE DISPOSITION: To [facility]. FOLLOWUP: The patient will follow up with Dr. Rivera at [facility]. The patient did not have a [place] hospital physician on admission. ALLERGIES: No known drug allergies. DISCHARGE MEDICATIONS: 1. Prednisolone 20 mg taper for alcoholic hepatitis with elevated discriminant function 2. Clonidine 0.1 mg 3 times a day. 3. Thiamine 100 mg daily. 4. Folic acid 1 mg daily. 5. Multivitamin 1 tablet daily. 6. Florastor 250 mg daily. 7. Pepcid 20 mg b.i.d. 8. Vitamin B12 daily. 9. Augmentin 1 tablet twice a day for 6 days for aspiration pneumonia. BRIEF HOSPITAL COURSE: The patient is a 77-year-old female with chronic alcoholism and dementia who was brought into the hospital with generalized weakness. Her workup in the emergency room was consis tent with sepsis secondary to urinary tract infection and aspiration pneumonia with severe electrolyt e abnormalities as well as acute alcoholic hepatitis with elevated discriminant function. Please ref er to the history and physical for further details. The patient was admitted to the hospital with the above diagnosis. She was started on IV fluids, pre dnisolone, antibiotics. Urine culture showed E. coli, which was sensitive to ceftriaxone. The patie nt has completed ceftriaxone during this hospital stay. Blood culture remained negative. Chest x-ra y was consistent with aspiration pneumonia. She will complete Augmentin for another 5-6 days. Her L FTs are slowly improving. Total bilirubin on admission was 7.7. At discharge, it is 3.1. She will require repeat labs including LFTs in the next 5-7 days. Mentation is slowly improving as well. Total time coordinating the discharge of this patient was 41 minutes. FINAL DIAGNOSES: 1. Generalized weakness, multifactorial. 2. Toxic metabolic encephalopathy. 3. Sepsis with acute organ dysfunction secondary to Escherichia coli urinary tract infection and asp iration pneumonia. The patient received Zosyn during this hospital stay. 4. Severe electrolyte abnormalities including hypokalemia, hyponatremia, hypophosphatemia and hypoma gnesemia. 5. Lactic acidosis secondary to sepsis/dehydration, improved. 6. Acute alcoholic hepatitis with elevated discriminant function. 7. Moderate protein calorie malnutrition. 8. Hypertension. 9. Chronic alcoholism. 10. Macrocytosis.
== END 2018-03-03 15:40 | DRG 871 ==
LOC: ERS 13:29 → 2NO 18:00 → T4-A 03-02 14:02
PROVIDERS: ADMIT Internal Medicine; ATTEND Internal Medicine
DX: A41.51 Sepsis due to Escherichia coli [E. coli] (principal); J69.0 Pneumonitis due to inhalation of food and vomit; G92 Toxic encephalopathy; N39.0 Urinary tract infection, site not specified; E44.0 Moderate protein-calorie malnutrition; Z68.1 Body mass index [BMI] 19.9 or less, adult; E87.1 Hypo-osmolality and hyponatremia; E87.2 Acidosis; K70.10 Alcoholic hepatitis without ascites; G30.9 Alzheimer's disease, unspecified; F02.80 Dementia in other diseases classified elsewhere, unspecified severity, without behavioral disturbance, psychotic disturbance, mood disturbance, and anxiety; F10.10 Alcohol abuse, uncomplicated; E87.6 Hypokalemia; E83.39 Other disorders of phosphorus metabolism; E83.42 Hypomagnesemia
CPT/HCPCS: 36415; 36416; 51701; 71045; 76705; 76770; 80048; 80053; 80076; 81003; 81015; 82140; 82248; 82533; 82607; 82746; 83605; 83630; 83690; 83735; 84100; 84443; 85025; 85610; 85730; 87040; 87077; 87086; 87186; 87324; 87328; 87329; 87449; 94640; 96361; 96365; 96366; 96367; A4216; A4353; G8978-GP-CM; G8979-GP-CK; G8987-GO-CM; G8988-GO-CM; G8989-GO-CM; G8996-GN-CK; G8996-GN-CN; G8997-GN-CI; G8997-GN-CL; J0696; J2543; J2920; J3370; J3411; J3475; J3480; J7042; J7050; J7620

== ENCOUNTER 2019-02-16 14:45 | Emergency (ER) | payer MEDICARE, OTHER ==
[2019-02-16 15:33] LABS: #Basophils 0.1 thou/uL (0.0-0.2); #Eosinphils 0.2 thou/uL (0.0-0.7); #Lymphocytes 3.6 thou/uL (1.20-3.40); #Neutrophils 3.8 thou/uL (1.40-6.50); %Basophils 1.2 % (0.0-1.0); %Eosinophils 2.1 % (0.0-10.0); %Lymphocytes 41.6 % (21.0-51.0); %Monocytes 11.2 % (0.0-10.0); %Neutrophils 43.8 % (42.0-75.0); Mean Corpuscular HGB CONC 33.6 g/dL (32.0-36.0); Mean Corpuscular Hemoglobin 30.2 pg (27.0-31.0); Mean Corpuscular Volume 89.9 fL (78.0-98.0); Mean Platelet Volume 8.1 fL (7.4-10.4); Platelet Count 226 thou/uL (130-400); RBC Distribution Width 12.5 % (11.5-14.5); Red Blood Cell (RBC) Count 4.64 mill/uL (4.20-5.40); White Blood Cell (WBC) Count 8.7 thou/uL (4.8-10.8)
--- NOTE | 2019-02-16 15:47 | CT ---
CT OF THE HEAD NONCONTRAST: 02/16/19 COMPARISON: 01/07/18 INDICATION: Altered mental status. FINDINGS: There is moderate global atrophy with compensatory dilatation of the ventricular system, stable. Phys iologic calcifications again seen within bilateral basal ganglia as well as bilateral cerebellar nucl ei. No intracranial hemorrhage, mass effect, or midline shift. Under pneumatization/opacification at the inferior mastoid air cells bilaterally. IMPRESSION: No acute intracranial abnormalities. Asymmetric area of inferior mastoid air cell opacification/unde r pneumatization. POS: OFF
[2019-02-16 15:53] LABS: ALT (SGPT) 9 U/L (8-55); AST (SGOT) 19 U/L (5-34); Acetaminophen Less than 6.0 mcg/mL (10.0-30.0); Albumin 3.7 g/dL (3.4-4.8); Alcohol Less than 10 mg/dL (Less than 10); Alkaline Phosphatase 100 U/L (40-150); Anion Gap 13 mmol/L (10-20); BUN (Urea Nitrogen) 8 mg/dL (9.8-20.1); Bilirubin, Total 0.4 mg/dL (0.2-1.2); CK (CPK) 58 U/L (29-168); Calc. Creatinine Clearance 0 mL/min (70-130); Calcium 9.1 mg/dL (7.8-10.44); Carbon Dioxide 19 mmol/L (23-31); Chloride 112 mmol/L (98-107); Estimated GFR-MDRD 66; Globulin 3.1 g/dL (2.4-3.5); Glucose 105 mg/dL (83-110); Potassium 3.9 mmol/L (3.5-5.1); Protein, Total 6.8 g/dL (6.0-8.3); Salicylate Less than 8.0 mg/dL (15.0-30.0); Sodium 140 mmol/L (136-145)
[2019-02-16 16:11] LABS: Bilirubin Negative (Negative); Blood, Urine Negative (Negative); Clarity Clear (Clear); Glucose, Urine (Dipstick) Normal (Negative); Leukocyte Negative Leu/uL (Negative); Nitrite Negative (Negative); Protein, Urine (Dipstick) Negative (Neg-Trace); Urobilinogen Normal mg/dL (Less than 2)
[2019-02-16 16:22] LABS: Amphetamine Not Detected (NotDetected); Barbiturates Screen Not Detected (NotDetected); Benzodiazepine Screen Detected (NotDetected); Cocaine Metabolite Screen Not Detected (NotDetected); Medtox Control Line Valid? VALID (VALID); Medtox Reader # READER 4; Methadone Not Detected (NotDetected); Methamphetamine Not Detected (NotDetected); Opiate Screen Not Detected (NotDetected); Oxycodone Screen Not Detected (NotDetected); Phencyclidine (PCP) Not Detected (NotDetected); THC/Cannabinoid Screen Not Detected (NotDetected); Tricyclic Screen Detected (NotDetected)
== END 2019-02-16 19:20 | disposition home or self-care (01) ==
LOC: ERS 14:45
DX: R41.82 Altered mental status, unspecified (principal); E03.9 Hypothyroidism, unspecified; F03.90 Unspecified dementia, unspecified severity, without behavioral disturbance, psychotic disturbance, mood disturbance, and anxiety; E87.6 Hypokalemia; Z87.891 Personal history of nicotine dependence; Z79.899 Other long term (current) drug therapy
CPT/HCPCS: 36415; 51701; 70450; 80053; 80306; 80307; 81003; 82140; 82550; 83605; 84484; 85025; 93005; A4353